=== PATIENT | female | born 2000 | race African-American/Black ===

== ENCOUNTER 2023-09-03 07:09 | Emergency (ER) | payer OTHER ==
[~2023-09-03] VITALS: Ht 165.1 cm; Wt 84.8 kg
[2023-09-03] MEDS: KETOROLAC 60MG 2ML VIAL IM ONE (08:42)
[2023-09-03] MEDS ORDERED: IBUP-1022 PO (10:09)
[2023-09-03 10:22] VITALS: BP 150/80; TEMP 97.6; O2SAT 100
== END 2023-09-03 10:26 | disposition home or self-care (01) ==
LOC: M ED 07:09
DX: N94.6 Dysmenorrhea, unspecified (principal); G89.29 Other chronic pain; M54.9 Dorsalgia, unspecified
CPT/HCPCS: 84702; 96372; 99283; J1885

== ENCOUNTER → 2024-02-19 | Outpatient (CLI) | payer OTHER ==
[~2024-02-19] MED LIST: IBUP-1022 PO
[2024-02-19 12:53] LABS: BASO % 0.4 % (0.0-1.0); EOS # 0.3 10^3/uL (0.0-0.5); EOS % 4.1 % (0.0-3.0); HEMOGLOBIN 12.6 g/dl (12.0-15.5); LYMPH % 43.4 % (24.0-44.0); MEAN CORPUSCULAR HGB CONC 32.3 g/dl (32.0-36.5); MEAN CORPUSCULAR VOLUME 74.3 fl (80.0-96.0); MONO # 0.5 10^3/uL (0.0-0.8); MONO % 7.6 % (2.0-8.0); NEUTROPHILS % 44.4 % (36.0-66.0); PLATELET COUNT, AUTOMATED 249 10^3/uL (150-450); RED BLOOD COUNT 5.25 10^6/uL (4.00-5.40); WHITE BLOOD COUNT 6.8 10^3/uL (4.0-10.0)
== END ==
LOC: M PLALAB 10:56
PROVIDERS: ATTEND Internal Medicine Hematology
DX: D69.9 Hemorrhagic condition, unspecified (principal)

== ENCOUNTER → 2024-03-29 | Outpatient (CLI) | payer OTHER ==
[2024-03-29 16:43] LABS: COLLAGEN EPINEPHRINE 230 SECONDS (74-162)
[2024-03-29 17:06] LABS: COLLAGEN ADP 153 SECONDS (56-103)
== END ==
LOC: M LAB 15:42
PROVIDERS: ATTEND Internal Medicine Hematology
DX: D69.9 Hemorrhagic condition, unspecified (principal)